=== PATIENT | female | born 1950 | race Caucasian/White ===

== ENCOUNTER 2017-01-30 16:07 | Observation (INO) | payer MEDICAID, MEDICARE ==
[~2017-01-30] VITALS: Ht 172.7 cm; Wt 75.0 kg
[2017-01-30] MEDS ORDERED: ONDANSETRON HCL 4 MG/2 ML VIAL IV ONE (16:45)
[2017-01-30] MEDS ORDERED: LORazepam 2 MG/ML VIAL IV PUSH ONE (16:45)
[2017-01-30] MEDS ORDERED: MORPHINE SULFATE 4 MG/ML INJ IV PUSH ONE (16:45)
[2017-01-30 16:53] VITALS: BP 140/73; PULSE 70; PULSE 73; RESP 17; RESP 22; TEMP 98; O2SAT 98
--- NOTE | 2017-01-30 17:06 | PD ---
HPI Chief Complaint: Anxiety Time Seen by Provider: 16:32 Travel History International Travel<30 days: No Contact w/Intl Traveler<30days: No Traveled to known affect area: No History of Present Illness HPI This patient was sent from the assisted-living facility at the request of its physician Dr. Ruiz. Patient herself cannot provide much in the way of useful history or review of systems. She has altered mental status due to narcotic and benzodiazepine withdrawal. Patient is chronically on morphine and Xanax [id number]. She was recently hospitalized at another facility in the [facility] but neither the physician or the patient no which one. All her addictive medications were stopped and she went back to the [facility] basically in withdrawal. She is anxious and jittery and confused. He requests overnight hospitalization to get this under control and states it's beyond their [facility] capabilities at this point [facility] Social History Alcohol Use: No Tobacco Use: No Substance Use: No Allergies-Medications (Allergen,Severity, Reaction): Coded Allergies: Penicillin (Verified Allergy, Unknown, 01/30/17) Trileptal (Verified Allergy, Unknown, 01/30/17) Reported Meds & Prescriptions Reported Meds & Active Scripts Active Reported Ferrous Sulfate 325 Mg Tab 325 Mg PO DAILY Pepcid (Famotidine) 20 Mg Tab 20 Mg PO BID Cardura (Doxazosin Mesylate) 4 Mg Tab 4 Mg PO DAILY Colace (Docusate Sodium) 100 Mg Cap 100 Mg PO BID Klor-Con M10 (Potassium Chloride Microencaps) 10 Meq Tab 10 Meq PO DAILY Morphine IR (Morphine Sulfate) 15 Mg Tab 15 Mg PO Q6HR Metoprolol Succinate ER 24 HR (Metoprolol Succinate) 25 Mg Tab 12.5 Mg PO DAILY Gabapentin 300 Mg Cap 300 Mg PO TID Lasix (Furosemide) 20 Mg Tab 20 Mg PO DAILY Xanax (Alprazolam) 1 Mg Tab 1 Mg PO Q6H Paxil (Paroxetine HCl) 20 Mg Tab 20 Mg PO DAILY Bactrim DS (Sulfamethoxazole-Trimethoprim) 800-160 Mg Tab 1 Tab PO BID 14 Days Prednisone 10 Mg Tab 10 Mg PO DAILY Risperdal (Risperidone) 0.25 Mg Tab 0.25 Mg PO Q12HR PRN Proair Hfa 8.5 GM Inh (Albuterol Sulfate) 90 Mcg/Act Aer 2 Puff INH Q6H PRN 108 mcg/actuation Percocet (Oxycodone-Acetaminophen) 10-325 mg Tab 1 Tab PO Q4H PRN Give 2hrs before or after Morphine or Xanax Duoneb (Ipratropium-Albuterol Neb) 0.5-2.5 Mg/3 Ml Neb 3 Ml NEB Q6HR PRN Review of Systems ROS Limitations: Clinical Condition, Altered Mental Status, Uncooperative, Poor Historian Physical Exam Narrative GENERAL: Disheveled anxious jittery uncooperative patient SKIN: Focused skin assessment reveals no rash and nodules. Skin is Warm and dry. HEAD: Atraumatic. Normocephalic. EYES: Pupils equal and round. No scleral icterus. No injection or drainage. ENT: No nasal bleeding or discharge. Mucous membranes pink and moist. NECK: Trachea midline. No JVD. CARDIOVASCULAR: Regular rate and rhythm. No murmur appreciated. RESPIRATORY: No accessory muscle use. Clear to auscultation. Breath sounds equal bilaterally. GASTROINTESTINAL: Abdomen soft, non-tender, nondistended. Hepatic and splenic margins not palpable. MUSCULOSKELETAL: No obvious deformities. No clubbing. No cyanosis. No edema. NEUROLOGICAL: Awake but confused. No obvious cranial nerve deficits. Patient doesn't cooperate with exam. Difficult to accurately gauge motor strength or sensation. PSYCHIATRIC: Very anxious mood and affect; insight and judgment poor . Data Data Last Documented VS Vital Signs Date Time Temp Pulse Resp B/P Pulse Ox O2 Delivery O2 Flow Rate FiO2 01/30/17 17:31 79 28 147/94 92 Room Air 01/30/17 16:53 98.0 Orders Iv Access Insert/Monitor (01/30/17 16:45) Complete Blood Count With Diff (01/30/17 16:45) Basic Metabolic Panel (Bmp) (01/30/17 16:45) Ondansetron Inj (Zofran Inj) (01/30/17 16:45) Morphine Inj (Morphine Inj) (01/30/17 16:45) Lorazepam Inj (Ativan Inj) (01/30/17 16:45) Labs Laboratory Tests Test 01/30/17 17:00 White Blood Count 4.2 TH/MM3 Red Blood Count 5.65 MIL/MM3 Hemoglobin 16.5 GM/DL Hematocrit 50.1 % Mean Corpuscular Volume 88.7 FL Mean Corpuscular Hemoglobin 29.1 PG Mean Corpuscular Hemoglobin 32.8 % Concent Red Cell Distribution Width 14.8 % Platelet Count 136 TH/MM3 Mean Platelet Volume 8.3 FL Neutrophils (%) (Auto) 81.5 % Lymphocytes (%) (Auto) 13.0 % Monocytes (%) (Auto) 4.6 % Eosinophils (%) (Auto) 0.3 % Basophils (%) (Auto) 0.6 % Neutrophils # (Auto) 3.4 TH/MM3 Lymphocytes # (Auto) 0.5 TH/MM3 Monocytes # (Auto) 0.2 TH/MM3 Eosinophils # (Auto) 0.0 TH/MM3 Basophils # (Auto) 0.0 TH/MM3 CBC Comment DIFF FINAL Differential Comment Sodium Level 140 MEQ/L Potassium Level 3.9 MEQ/L Chloride Level 105 MEQ/L Carbon Dioxide Level 27.1 MEQ/L Anion Gap 8 MEQ/L Blood Urea Nitrogen 13 MG/DL Creatinine 0.77 MG/DL Estimat Glomerular Filtration 75 ML/MIN Rate Random Glucose 90 MG/DL Calcium Level 8.3 MG/DL MDM Medical Decision Making Medical Screen Exam Complete: Yes Emergency Medical Condition: Yes Medical Record Reviewed: Yes Differential Diagnosis Narcotic withdrawal, benzodiazepine withdrawal, anxiety Narrative Course I have reviewed the patient's electronic medical record. Reviewed the [facility] paperwork. She is DNR. She takes 15 mg of morphine every 6 hours and Xanax every 6 hours and also Adderall daily Patient is challenging IV access I placed a 18-gauge IV in her left external jugular vein I gave her dose of IV morphine and IV Ativan and IV Zofran to blunt her withdrawal symptoms which are extensive at this point CBC is normal Metabolic profile is normal I spoke with the [facility] physician. He is not able to handle this at the facility given the severity withdrawal. Patient looks clinically improved after the above medications. The hospitalist who will do an observation Diagnosis Primary Impression: Benzodiazepine withdrawal with delirium Additional Impression: Acute narcotic withdrawal Admitting Information Admitting Physician Requests: Observation Luke Sheets MD Jan 30, 2017 17:06
[2017-01-30] MEDS ORDERED: POTA-88 PO (17:12)
[2017-01-30] MEDS ORDERED: GABA300C5 PO (17:12)
[2017-01-30] MEDS ORDERED: BACT800T5 PO (17:12)
[2017-01-30] MEDS ORDERED: PRED10 PO (17:12)
[2017-01-30] MEDS ORDERED: COLA100C3 PO (17:12)
[2017-01-30] MEDS ORDERED: PERC10TA27 PO (17:12)
[2017-01-30] MEDS ORDERED: METO25TA6 PO (17:12)
[2017-01-30] MEDS ORDERED: ALBUAER3 INH (17:12)
[2017-01-30] MEDS ORDERED: FURO1TAB62 PO (17:12)
[2017-01-30] MEDS ORDERED: IPRASOL NEB (17:12)
[2017-01-30] MEDS ORDERED: FERR325T PO (17:12)
[2017-01-30] MEDS ORDERED: XANA1TAB2 PO (17:12)
[2017-01-30] MEDS ORDERED: MSIR15 PO (17:12)
[2017-01-30] MEDS ORDERED: CARD4TAB2 PO (17:12)
[2017-01-30] MEDS ORDERED: RISP.25 PO (17:12)
[2017-01-30] MEDS ORDERED: FAMO1TAB37 PO (17:12)
[2017-01-30] MEDS ORDERED: PAXI20TA PO (17:12)
[2017-01-30 17:27] LABS: AUTOMATED NEUTROPHIL # 3.4 TH/MM3 (1.8-7.7); BASOPHIL % 0.6 % (0.0-2.0); EOSINOPHIL % 0.3 % (0.0-4.0); HEMATOCRIT 50.1 % (35.0-46.0); HEMO FLAGS DIFF FINAL; LYMPHOCYTE # 0.5 TH/MM3 (1.0-4.8); MEAN CELL VOLUME 88.7 FL (80.0-100.0); MEAN CORPUSCULAR HEMOGLOBIN 29.1 PG (27.0-34.0); MEAN CORPUSCULAR HGB CONC 32.8 % (32.0-36.0); MONO % 4.6 % (0.0-8.0); NEUT % 81.5 % (16.0-70.0); PLATELET COUNT 136 TH/MM3 (150-450); RED BLOOD COUNT 5.65 MIL/MM3 (4.00-5.30); RED CELL DISTRIBUTION WIDTH 14.8 % (11.6-17.2); WHITE BLOOD COUNT 4.2 TH/MM3 (4.0-11.0)
[2017-01-30 17:31] VITALS: BP 147/94; PULSE 79; RESP 28; O2SAT 92
[2017-01-30 17:46] LABS: BICARBONATE 27.1 MEQ/L (21.0-32.0); POTASSIUM 3.9 MEQ/L (3.5-5.1)
[2017-01-30] MEDS ORDERED: SODIUM CHLORIDE 0.9% FLUSH 10 ML FLUSH IV FLUSH PRN (18:15)
[2017-01-30] MEDS ORDERED: risperiDONE 0.25 MG TAB PO PRN (18:15)
[2017-01-30] MEDS ORDERED: LORazepam 2 MG/ML VIAL IV PUSH PRN (18:15)
[2017-01-30] MEDS ORDERED: NALOXONE HCL 0.4 MG/ML AMP IV PRN (18:15)
[2017-01-30] MEDS ORDERED: MAGNESIUM HYDROXIDE SUSP 30 ML CUP PO PRN (18:15)
[2017-01-30] MEDS ORDERED: ALBUTEROL SULFATE 90 MCG/ACT HFA 8 GM INHALER INH PRN (18:15)
[2017-01-30] MEDS ORDERED: ACETAMINOPHEN 325 MG TAB PO PRN (18:15)
[2017-01-30] MEDS ORDERED: ONDANSETRON HCL 4 MG/2 ML VIAL IVP PRN (18:15)
--- NOTE | 2017-01-30 18:20 | HHI.HP ---
[facility] Primary Care Physician Unknown Admission Diagnosis Diagnoses: Chief Complaint: Withdrawal Travel History International Travel<30 Days: No Contact w/Intl Traveler <30 Da: No Traveled to Known Affected Are: No History of Present Illness 66-year-old female with a past medical history of GERD, urinary retention, FERNANDO, osteomyelitis, COPD, anxiety/depression, chronic pain, ADHD, HTN who was sent from [facility] for benzodiazepine withdrawal. The patient received IV morphine and Ativan in the ED and is currently somnolent. She does arouse to voice and light touch, but is currently nonverbal and provides no history. History is obtained from ED communication and the medical record. Reportedly the patient was sent from her [facility] by her PCP for benzodiazepine and opiate withdrawal. Apparently the patient was recently admitted at another hospital (unknown reason ), and did not receive her controlled substances during that admission. Reportedly after she arrived back at her [facility] she was in benzodiazepine withdrawal with agitation, hallucination, and tremulousness. Hospitalists were asked for admission for overnight monitoring for further withdrawal symptoms as patient's [facility] is not capable of managing withdrawal. Review of Systems ROS Limitations: Altered Mental Status Unable to obtain secondary to patient's current sedated mental status Past Family Social History Past Medical History Obtained from [facility] record: Urinary retention Chronic pain History of osteomyelitis Anxiety/depression COPD Hypertension GERD Iron deficiency anemia Past Surgical History Unable to obtain Reported Medications Ferrous Sulfate 325 Mg Tab 325 Mg PO DAILY Pepcid (Famotidine) 20 Mg Tab 20 Mg PO BID Cardura (Doxazosin Mesylate) 4 Mg Tab 4 Mg PO DAILY Colace (Docusate Sodium) 100 Mg Cap 100 Mg PO BID Klor-Con M10 (Potassium Chloride Microencaps) 10 Meq Tab 10 Meq PO DAILY Morphine IR (Morphine Sulfate) 15 Mg Tab 15 Mg PO Q6HR Metoprolol Succinate ER 24 HR (Metoprolol Succinate) 25 Mg Tab 12.5 Mg PO DAILY Gabapentin 300 Mg Cap 300 Mg PO TID Lasix (Furosemide) 20 Mg Tab 20 Mg PO DAILY Xanax (Alprazolam) 1 Mg Tab 1 Mg PO Q6H Paxil (Paroxetine HCl) 20 Mg Tab 20 Mg PO DAILY Bactrim DS (Sulfamethoxazole-Trimethoprim) 800-160 Mg Tab 1 Tab PO BID 14 Days Prednisone 10 Mg Tab 10 Mg PO DAILY Risperdal (Risperidone) 0.25 Mg Tab 0.25 Mg PO Q12HR PRN Proair Hfa 8.5 GM Inh (Albuterol Sulfate) 90 Mcg/Act Aer 2 Puff INH Q6H PRN 108 mcg/actuation Percocet (Oxycodone-Acetaminophen) 10-325 mg Tab 1 Tab PO Q4H PRN Give 2hrs before or after Morphine or Xanax Duoneb (Ipratropium-Albuterol Neb) 0.5-2.5 Mg/3 Ml Neb 3 Ml NEB Q6HR PRN Allergies: Coded Allergies: Penicillin (Verified Allergy, Unknown, 01/30/17) Trileptal (Verified Allergy, Unknown, 01/30/17) Active Ordered Medications Current Medications Medications (Trade) Dose Ordered Sig/Anamika Route Start Time Stop Time Status Last Admin (Proair Hfa Inh) 2 puff Q6H PRN INH 01/30/17 18:15 UNV (Xanax) 1 mg Q6H PO 01/30/17 18:15 UNV (Colace) 100 mg BID PO 01/30/17 21:00 UNV (Cardura) 4 mg DAILY PO 01/31/17 09:00 UNV (Pepcid) 20 mg BID PO 01/30/17 21:00 UNV (Ferrous Sulfate) 325 mg DAILY PO 01/31/17 09:00 UNV (Neurontin) 300 mg TID PO 01/31/17 09:00 UNV (Duoneb Neb) 1 ampule Q6HR PRN NEB 01/30/17 18:15 UNV (Toprol Xl) 12.5 mg DAILY PO 01/31/17 09:00 UNV (Msir) 15 mg Q6HR PO 01/31/17 00:00 UNV (Paxil) 20 mg DAILY PO 01/31/17 09:00 UNV (Deltasone) 10 mg DAILY PO 01/31/17 09:00 UNV (risperDAL) 0.25 mg Q12HR PRN PO 01/30/17 18:15 UNV Trimethoprim/ Sulfamethoxazole 1 tab 1 tab BID PO 01/30/17 21:00 UNV (NS 1000 ml Inj) 1,000 ml @ 100 mls/hr Q10H IV 01/30/17 18:10 UNV (NS Flush) 2 ml UNSCH PRN IV FLUSH 01/30/17 18:15 UNV (NS Flush) 2 ml BID IV FLUSH 01/30/17 21:00 UNV (Tylenol) 650 mg Q4H PRN PO 01/30/17 18:15 UNV (Zofran Inj) 4 mg Q6H PRN IVP 01/30/17 18:15 UNV (Milk Of Magnesia Liq) 30 ml Q12H PRN PO 01/30/17 18:15 UNV (Narcan Inj) 0.4 mg UNSCH PRN IV 01/30/17 18:15 UNV Family History Unable to obtain secondary to patient's mental status Social History [facility] resident Physical Exam Vital Signs Vital Signs Date Time Temp Pulse Resp B/P Pulse Ox O2 Delivery O2 Flow Rate FiO2 01/30/17 17:31 79 28 147/94 92 Room Air 01/30/17 16:53 98.0 73 17 140/73 98 01/30/17 16:53 98.0 70 22 140/73 98 Physical Exam GENERAL: Well-developed well-nourished. In no acute distress. SKIN: Warm and dry. No lesions noted. HEENT: Normocephalic. Pupils equal and round. Mucous membranes pink and moist. CARDIOVASCULAR: Regular rate and rhythm. No murmur appreciated. RESPIRATORY: No accessory muscle use. Clear to auscultation. Breath sounds equal bilaterally. GASTROINTESTINAL: Abdomen soft, non-tender, nondistended. Bowel sounds x4. MUSCULOSKELETAL: No obvious deformities. No clubbing or cyanosis. No edema. NEUROLOGICAL: Somnolent, sedated, although does respond to voice and light touch. Moves upper and lower extremities spontaneously. Laboratory Laboratory Tests Test 01/30/17 17:00 White Blood Count 4.2 Red Blood Count 5.65 Hemoglobin 16.5 Hematocrit 50.1 Mean Corpuscular Volume 88.7 Mean Corpuscular Hemoglobin 29.1 Mean Corpuscular Hemoglobin 32.8 Concent Red Cell Distribution Width 14.8 Platelet Count 136 Mean Platelet Volume 8.3 Neutrophils (%) (Auto) 81.5 Lymphocytes (%) (Auto) 13.0 Monocytes (%) (Auto) 4.6 Eosinophils (%) (Auto) 0.3 Basophils (%) (Auto) 0.6 Neutrophils # (Auto) 3.4 Lymphocytes # (Auto) 0.5 Monocytes # (Auto) 0.2 Eosinophils # (Auto) 0.0 Basophils # (Auto) 0.0 CBC Comment DIFF FINAL Differential Comment Sodium Level 140 Potassium Level 3.9 Chloride Level 105 Carbon Dioxide Level 27.1 Anion Gap 8 Blood Urea Nitrogen 13 Creatinine 0.77 Estimat Glomerular Filtration 75 Rate Random Glucose 90 Calcium Level 8.3 Result Diagram: 01/30/17 1700 01/30/17 170 Imaging No new imaging performed. Assessment and Plan Assessment and Plan 66-year-old female with a past medical history of GERD, urinary retention, FERNANDO, osteomyelitis, COPD, anxiety/depression, chronic pain, ADHD, HTN who was sent from [facility] for benzodiazepine withdrawal Benzodiazepine withdrawal: Labs and vital signs stable at this time, reviewed. Resume patient's home scheduled controlled substances, confirmed on [facility] EMR. Oral and IV Ativan as needed for further withdrawal symptoms. Caution with oversedation, hold parameters placed. Supportive care. IVF. Other chronic medical conditions including COPD, GERD, iron deficiency, ADHD, depression, HTN: Stable at this time and will continue home medications as indicated. DVT prophylaxis: SCDs patient seen and evaluated in ER, agree with observation for the next 23 hours for withdrawal. Discharge tomorrow. Code Status The patient has a community DNR in the chart that says that she is a DO NOT RESUSCITATE Discussed Condition With Dr. Kaur Attending Statement Patient seen in Emergency room, discussed with SEGUN Bedolla agree with management. Graeme Zayas Jan 30, 2017 18:20 Oren Cardenas MD Jan 30, 2017 18:57
[2017-01-30] MEDS ORDERED: RESP: ALBUTEROL 2.5 MG/IPRATROPIUM 0.5 MG NEB (PRN) NEB (18:30)
[2017-01-30] MEDS ORDERED: PILL SPLITTER OTHER PRN (18:30)
[2017-01-30] MEDS: SODIUM CHLOR 0.9% 1000 ML INJ 1,000 ML IV SCH (19:21)
[2017-01-30] MEDS: ALPRAZolam 1 MG TAB PO SCH ×2 (19:22→23:42)
[2017-01-30 19:23] VITALS: BP 151/70; PULSE 85; RESP 18; O2SAT 93
[2017-01-30 19:45] VITALS: BP 131/71; PULSE 85; RESP 18; TEMP 98.1; O2SAT 96
[2017-01-30] MEDS: FAMOTIDINE 20 MG TAB PO SCH (21:00)
[2017-01-30] MEDS: SODIUM CHLORIDE 0.9% FLUSH 10 ML FLUSH IV FLUSH SCH (21:00)
[2017-01-30] MEDS: SULFAMETHOXAZOLE-TRIMETHOPRIM DS 800-160 MG TAB PO SCH (21:00)
[2017-01-30] MEDS: DOCUSATE SODIUM 100 MG CAP PO SCH (21:00)
[2017-01-30 21:19] VITALS: O2SAT 95
[2017-01-30] MEDS: MORPHINE SULFATE 15 MG TAB PO SCH (23:42)
[2017-01-31 00:24] VITALS: BP 156/72; PULSE 78; RESP 18; TEMP 98.2; O2SAT 98
[2017-01-31] MEDS: LORazepam 1 MG TAB PO PRN ×2 (01:00→08:57)
[2017-01-31 04:12] VITALS: BP 142/60; PULSE 68; RESP 18; TEMP 97.6; O2SAT 95
[2017-01-31] MEDS: SODIUM CHLOR 0.9% 1000 ML INJ 1,000 ML IV SCH ×2 (04:37→14:10)
[2017-01-31 05:26] LABS: AUTOMATED NEUTROPHIL # 3.9 TH/MM3 (1.8-7.7); BASOPHIL % 0.3 % (0.0-2.0); EOSINOPHIL # 0.1 TH/MM3 (0-0.4); HEMATOCRIT 39.3 % (35.0-46.0); HEMO FLAGS DIFF FINAL; LYMPH % 25.2 % (9.0-44.0); LYMPHOCYTE # 1.5 TH/MM3 (1.0-4.8); MEAN CELL VOLUME 88.4 FL (80.0-100.0); MEAN CORPUSCULAR HEMOGLOBIN 30.1 PG (27.0-34.0); MEAN CORPUSCULAR HGB CONC 34.1 % (32.0-36.0); MONO % 8.1 % (0.0-8.0); NEUT % 65.4 % (16.0-70.0); PLATELET COUNT 225 TH/MM3 (150-450); RED BLOOD COUNT 4.45 MIL/MM3 (4.00-5.30); RED CELL DISTRIBUTION WIDTH 14.6 % (11.6-17.2); WHITE BLOOD COUNT 5.9 TH/MM3 (4.0-11.0)
[2017-01-31 05:58] LABS: ALT (GPT) 34 U/L (10-53); ANION GAP 8 MEQ/L (5-15); AST (GOT) 32 U/L (15-37); BICARBONATE 26.6 MEQ/L (21.0-32.0); BLOOD UREA NITROGEN 12 MG/DL (7-18); CHLORIDE 107 MEQ/L (98-107); GLOMERULAR FILTRATION RATE 86 ML/MIN (>89); POTASSIUM 3.6 MEQ/L (3.5-5.1); SODIUM (NA) 142 MEQ/L (136-145)
[2017-01-31 06:01] LABS: ALKALINE PHOSPHATASE 63 U/L (45-117); TOTAL BILIRUBIN ADULT 0.6 MG/DL (0.2-1.0)
[2017-01-31] MEDS: MORPHINE SULFATE 15 MG TAB PO SCH ×4 (06:06→18:00)
[2017-01-31] MEDS: ALPRAZolam 1 MG TAB PO SCH ×4 (06:07→20:25)
[2017-01-31 07:35] VITALS: BP 160/72; PULSE 75; RESP 18; TEMP 99; O2SAT 95
[2017-01-31] MEDS: FAMOTIDINE 20 MG TAB PO SCH ×2 (08:57→20:25)
[2017-01-31] MEDS: FERROUS SULFATE 325 MG (65 MG ELEMENTAL IRON) TAB PO SCH (08:57)
[2017-01-31] MEDS: PARoxetine HCL 20 MG TAB PO SCH (08:57)
[2017-01-31] MEDS: GABAPENTIN 300 MG CAP PO SCH ×3 (08:57→18:00)
[2017-01-31] MEDS: predniSONE 10 MG TAB PO SCH (08:57)
[2017-01-31] MEDS: DOCUSATE SODIUM 100 MG CAP PO SCH ×2 (08:57→20:25)
[2017-01-31] MEDS: DOXAZOSIN MESYLATE 4 MG TAB PO SCH (08:57)
[2017-01-31] MEDS: SODIUM CHLORIDE 0.9% FLUSH 10 ML FLUSH IV FLUSH SCH ×2 (08:58→20:25)
[2017-01-31] MEDS: SULFAMETHOXAZOLE-TRIMETHOPRIM DS 800-160 MG TAB PO SCH ×2 (08:58→20:25)
[2017-01-31] MEDS: METOPROLOL SUCCINATE 25 MG EXTENDED RELEASE TAB PO SCH (08:58)
[2017-01-31 14:28] VITALS: BP 116/65; PULSE 73; RESP 18; TEMP 97.8; O2SAT 95
[2017-01-31 19:18] VITALS: BP 151/74; PULSE 65; RESP 16; TEMP 98; O2SAT 96
[2017-02-01] VITALS: BP 167/97; PULSE 59; RESP 20; TEMP 97.5; O2SAT 96
[2017-02-01] MEDS: MORPHINE SULFATE 15 MG TAB PO SCH ×3 (00:26→06:37)
[2017-02-01] MEDS: SODIUM CHLOR 0.9% 1000 ML INJ 1,000 ML IV SCH (00:27)
[2017-02-01] MEDS: ALPRAZolam 1 MG TAB PO SCH ×3 (02:59→09:04)
[2017-02-01 04:00] VITALS: BP 138/67; PULSE 47; RESP 18; TEMP 97; O2SAT 94
[2017-02-01 07:30] VITALS: BP 126/90; PULSE 54; RESP 20; TEMP 98.1; O2SAT 99
[2017-02-01] MEDS: SODIUM CHLORIDE 0.9% FLUSH 10 ML FLUSH IV FLUSH SCH (09:00)
[2017-02-01] MEDS: METOPROLOL SUCCINATE 25 MG EXTENDED RELEASE TAB PO SCH (09:00)
[2017-02-01] MEDS: DOCUSATE SODIUM 100 MG CAP PO SCH (09:05)
[2017-02-01] MEDS: PARoxetine HCL 20 MG TAB PO SCH (09:06)
[2017-02-01] MEDS: FAMOTIDINE 20 MG TAB PO SCH (09:06)
[2017-02-01] MEDS: predniSONE 10 MG TAB PO SCH (09:07)
[2017-02-01] MEDS: GABAPENTIN 300 MG CAP PO SCH (09:07)
[2017-02-01] MEDS: FERROUS SULFATE 325 MG (65 MG ELEMENTAL IRON) TAB PO SCH (09:07)
[2017-02-01] MEDS: SULFAMETHOXAZOLE-TRIMETHOPRIM DS 800-160 MG TAB PO SCH (09:08)
[2017-02-01] MEDS: DOXAZOSIN MESYLATE 4 MG TAB PO SCH (09:08)
--- NOTE | 2017-02-01 09:38 | HHI.PR ---
Subjective Remarks 66-year-old female with a past medical history of GERD, urinary retention, FERNANDO, osteomyelitis, COPD, anxiety/depression, chronic pain, ADHD, HTN who was sent from [facility] for benzodiazepine withdrawal. The patient received IV morphine and Ativan in the ED and is currently somnolent. She does arouse to voice and light touch, but is currently nonverbal and provides no history. History is obtained from ED communication and the medical record. Reportedly the patient was sent from her [facility] by her PCP for benzodiazepine and opiate withdrawal. Apparently the patient was recently admitted at another hospital (unknown reason ), and did not receive her controlled substances during that admission. Reportedly after she arrived back at her [facility] she was in benzodiazepine withdrawal with agitation, hallucination, and tremulousness. Hospitalist were asked for admission for overnight monitoring for further withdrawal symptoms as patient's [facility] is not capable of managing withdrawal. 02/01: Patient today placed on my list I admitted her but by Mistake was placed in the name of a wrong physician, she is stable ready for discharge to [facility] No Signs of Withdrawal. No nausea, vomit or diarrhea. Objective Vital Signs Date Time Temp Pulse Resp B/P Pulse Ox O2 Delivery O2 Flow Rate FiO2 02/01/17 07:30 98.1 54 20 126/90 99 02/01/17 04:00 97.0 47 18 138/67 94 02/01/17 01:26 21 02/01/17 00:00 97.5 59 20 167/97 96 01/31/17 19:18 98.0 65 16 151/74 96 01/31/17 14:28 97.8 73 18 116/65 95 I/O 01/31/17 01/31/17 01/31/17 02/01/17 02/01/17 02/01/17 07:00 15:00 23:00 07:00 15:00 23:00 Output Total 875 ml Balance -875 ml Output Urine Total 875 ml # Voids 1 Result Diagram: 01/31/17 0411 01/31/17 0411 Imaging No Imaging studies performed. Procedures No procedures performed. Other Results Laboratory Tests Test 01/31/17 04:11 White Blood Count 5.9 TH/MM3 Red Blood Count 4.45 MIL/MM3 Hemoglobin 13.4 GM/DL Hematocrit 39.3 % Mean Corpuscular Volume 88.4 FL Mean Corpuscular Hemoglobin 30.1 PG Mean Corpuscular Hemoglobin 34.1 % Concent Red Cell Distribution Width 14.6 % Platelet Count 225 TH/MM3 Mean Platelet Volume 8.5 FL Neutrophils (%) (Auto) 65.4 % Lymphocytes (%) (Auto) 25.2 % Monocytes (%) (Auto) 8.1 % Eosinophils (%) (Auto) 1.0 % Basophils (%) (Auto) 0.3 % Neutrophils # (Auto) 3.9 TH/MM3 Lymphocytes # (Auto) 1.5 TH/MM3 Monocytes # (Auto) 0.5 TH/MM3 Eosinophils # (Auto) 0.1 TH/MM3 Basophils # (Auto) 0.0 TH/MM3 CBC Comment DIFF FINAL Differential Comment Sodium Level 142 MEQ/L Potassium Level 3.6 MEQ/L Chloride Level 107 MEQ/L Carbon Dioxide Level 26.6 MEQ/L Anion Gap 8 MEQ/L Blood Urea Nitrogen 12 MG/DL Creatinine 0.69 MG/DL Estimat Glomerular Filtration 86 ML/MIN Rate Random Glucose 77 MG/DL Calcium Level 8.1 MG/DL Total Bilirubin 0.6 MG/DL Aspartate Amino Transf 32 U/L (AST/SGOT) Alanine Aminotransferase 34 U/L (ALT/SGPT) Alkaline Phosphatase 63 U/L Total Protein 5.8 GM/DL Albumin 3.0 GM/DL Objective Remarks GENERAL: Well-developed well-nourished. In no acute distress. SKIN: Warm and dry. No lesions noted. HEENT: Normocephalic. Pupils equal and round. Mucous membranes pink and moist. CARDIOVASCULAR: Regular rate and rhythm. No murmur appreciated. RESPIRATORY: No accessory muscle use. Clear to auscultation. Breath sounds equal bilaterally. GASTROINTESTINAL: Abdomen soft, non-tender, nondistended. Bowel sounds x4. MUSCULOSKELETAL: No obvious deformities. No clubbing or cyanosis. No edema. NEUROLOGICAL: Somnolent, sedated, although does respond to voice and light touch. Moves upper and lower extremities spontaneously. Medications and IVs Current Medications Medications (Trade) Dose Ordered Sig/Anamika Route Start Time Stop Time Status Last Admin (Proair Hfa Inh) 2 puff Q6H PRN INH 01/30/17 18:15 (Xanax) 1 mg Q6HR PO 01/30/17 19:00 02/01/17 09:04 (Colace) 100 mg BID PO 01/30/17 21:00 02/01/17 09:05 (Cardura) 4 mg DAILY PO 01/31/17 09:00 02/01/17 09:08 (Pepcid) 20 mg BID PO 01/30/17 21:00 02/01/17 09:06 (Ferrous Sulfate) 325 mg DAILY PO 01/31/17 09:00 02/01/17 09:07 (Neurontin) 300 mg TID PO 01/31/17 09:00 02/01/17 09:07 (Toprol Xl) 12.5 mg DAILY PO 01/31/17 09:00 01/31/17 08:58 (Msir) 15 mg Q6HR PO 01/31/17 00:00 02/01/17 06:37 (Paxil) 20 mg DAILY PO 01/31/17 09:00 02/01/17 09:06 (Deltasone) 10 mg DAILY PO 01/31/17 09:00 02/01/17 09:07 (risperDAL) 0.25 mg Q12HR PRN PO 01/30/17 18:15 Trimethoprim/ Sulfamethoxazole 1 tab 1 tab BID PO 01/30/17 21:00 02/01/17 09:08 (NS 1000 ml Inj) 1,000 ml @ 100 mls/hr Q10H IV 01/30/17 18:10 02/01/17 00:27 (NS Flush) 2 ml UNSCH PRN IV FLUSH 01/30/17 18:15 (NS Flush) 2 ml BID IV FLUSH 01/30/17 21:00 01/31/17 20:25 (Tylenol) 650 mg Q4H PRN PO 01/30/17 18:15 (Zofran Inj) 4 mg Q6H PRN IVP 01/30/17 18:15 (Milk Of Magnesia Liq) 30 ml Q12H PRN PO 01/30/17 18:15 (Narcan Inj) 0.4 mg UNSCH PRN IV 01/30/17 18:15 (Ativan) 1 mg Q6H PRN PO 01/30/17 18:15 01/31/17 08:57 (Ativan Inj) 1 mg Q6H PRN IV PUSH 01/30/17 18:15 (Pill Splitter) 1 ea UNSCH PRN OTHER 01/30/17 18:30 A/P Assessment and Plan 1. Ruled out Benzodiazepine Withdrawal. 2. Anxiety disorder/Depression to continue Home medicines 3 chronic pain syndrome continue Home medicines 4. COPD non exacerbated continue Home medicines 5. Hypertension controlled. DVT prophylaxis: SCDs Code Status The patient has a community DNR in the chart that says that she is a DO NOT RESUSCITATE Discussed Condition With Patient and nurse Miss Apodaca in the room. Discharge Planning Discharge to [facility] Oren Cardenas MD Feb 01, 2017 09:38
--- NOTE | 2017-02-01 09:41 | HHI.DS ---
Discharge Summary Admission Date Jan 30, 2017 at 18:15 Discharge Date: Feb 01, 2017 Admitting Diagnosis (1) Benzodiazepine withdrawal with delirium ICD Code: F13.231 Diagnosis: Principal Procedures No procedures performed. Brief History - From Admission 66-year-old female with a past medical history of GERD, urinary retention, FERNANDO, osteomyelitis, COPD, anxiety/depression, chronic pain, ADHD, HTN who was sent from [facility] for benzodiazepine withdrawal. The patient received IV morphine and Ativan in the ED and is currently somnolent. She does arouse to voice and light touch, but is currently nonverbal and provides no history. History is obtained from ED communication and the medical record. Reportedly the patient was sent from her [facility] by her PCP for benzodiazepine and opiate withdrawal. Apparently the patient was recently admitted at another hospital (unknown reason ), and did not receive her controlled substances during that admission. Reportedly after she arrived back at her [facility] she was in benzodiazepine withdrawal with agitation, hallucination, and tremulousness. Hospitalists were asked for admission for overnight monitoring for further withdrawal symptoms as patient's [facility] is not capable of managing withdrawal. CBC/BMP: 01/31/17 0411 01/31/17 0411 Significant Findings Laboratory Tests Test 01/30/17 01/31/17 17:00 04:11 Red Blood Count 5.65 MIL/MM3 (4.00-5.30) Hemoglobin 16.5 GM/DL (11.6-15.3) Hematocrit 50.1 % (35.0-46.0) Platelet Count 136 TH/MM3 (150-450) Neutrophils (%) (Auto) 81.5 % (16.0-70.0) Lymphocytes # (Auto) 0.5 TH/MM3 (1.0-4.8) Estimat Glomerular Filtration 75 ML/MIN (>89) 86 ML/MIN (>89) Rate Calcium Level 8.3 MG/DL 8.1 MG/DL (8.5-10.1) (8.5-10.1) Monocytes (%) (Auto) 8.1 % (0.0-8.0) Total Protein 5.8 GM/DL (6.4-8.2) Albumin 3.0 GM/DL (3.4-5.0) Imaging No Imaging studies performed. PE at Discharge GENERAL: Well-developed well-nourished. In no acute distress. SKIN: Warm and dry. No lesions noted. HEENT: Normocephalic. Pupils equal and round. Mucous membranes pink and moist. CARDIOVASCULAR: Regular rate and rhythm. No murmur appreciated. RESPIRATORY: No accessory muscle use. Clear to auscultation. Breath sounds equal bilaterally. GASTROINTESTINAL: Abdomen soft, non-tender, nondistended. Bowel sounds x4. MUSCULOSKELETAL: No obvious deformities. No clubbing or cyanosis. No edema. NEUROLOGICAL: Alert and Oriented x 3. Hospital Course 66-year-old female with a past medical history of GERD, urinary retention, FERNANDO, osteomyelitis, COPD, anxiety/depression, chronic pain, ADHD, HTN who was sent from [facility] for benzodiazepine withdrawal. The patient received IV morphine and Ativan in the ED and is currently somnolent. She does arouse to voice and light touch, but is currently nonverbal and provides no history. History is obtained from ED communication and the medical record. Reportedly the patient was sent from her [facility] by her PCP for benzodiazepine and opiate withdrawal. Apparently the patient was recently admitted at another hospital (unknown reason ), and did not receive her controlled substances during that admission. Reportedly after she arrived back at her [facility] she was in benzodiazepine withdrawal with agitation, hallucination, and tremulousness. Hospitalist were asked for admission for overnight monitoring for further withdrawal symptoms as patient's [facility] is not capable of managing withdrawal. 02/01: Patient today placed on my list I admitted her but by Mistake was placed in the name of a wrong physician, she is stable ready for discharge to [facility] No Signs of Withdrawal. No nausea, vomit or diarrhea. Assessment and Plan 1. Ruled out Benzodiazepine Withdrawal. 2. Anxiety disorder/Depression to continue Home medicines 3 chronic pain syndrome continue Home medicines 4. COPD non exacerbated continue Home medicines 5. Hypertension controlled. DVT prophylaxis: SCDs Code Status The patient has a community DNR in the chart that says that she is a DO NOT RESUSCITATE Discussed Condition With Patient and nurse Miss Apodaca in the room. Discharge Planning Discharge to [facility] Pt Condition on Discharge: Good Discharge Disposition: [facility] Discharge Time: <= 30 minutes Discharge Instructions DIET: Follow Instructions for: Heart Healthy Diet Activities you can perform: Regular-No Restrictions Oren Cardenas MD Feb 01, 2017 09:41
[2017-02-01 11:04] VITALS: BP 135/73; PULSE 82; RESP 21; TEMP 97.8; O2SAT 96
== END 2017-02-01 13:11 | disposition home or self-care (01) ==
LOC: NEPC 16:07 → NEDA 18:15 → NEPHCDU 19:40
PROVIDERS: ADMIT Internal Medicine; ATTEND Internal Medicine
DX: R44.3 Hallucinations, unspecified (principal); G89.4 Chronic pain syndrome; J44.9 Chronic obstructive pulmonary disease, unspecified; D50.9 Iron deficiency anemia, unspecified; I10 Essential (primary) hypertension; K21.9 Gastro-esophageal reflux disease without esophagitis; F41.9 Anxiety disorder, unspecified; F32.9 Major depressive disorder, single episode, unspecified; F90.9 Attention-deficit hyperactivity disorder, unspecified type; M86.9 Osteomyelitis, unspecified; Z66 Do not resuscitate; Z79.52 Long term (current) use of systemic steroids; Z88.0 Allergy status to penicillin; Z88.8 Allergy status to other drugs, medicaments and biological substances
CPT/HCPCS: 80048; 80053; 85025; 96374; 96375; 99285; G0378; J2060; J2270; J2405; J7030; J7512